=== PATIENT | male | born 1935 | race Hispanic/Latino ===

== ENCOUNTER 2020-09-06 23:49 | Inpatient (IN) | payer MEDICARE, OTHER ==
[~2020-09-06] VITALS: Ht 180.3 cm; Wt 80.3 kg
[2020-09-06] MEDS ORDERED: NALOXONE HCL 0.4 MG/1 ML ML ONE ×2 (23:51→23:53)
[2020-09-07] VITALS (43 sets, daily range): BP systolic 68–142; BP diastolic 32–77
[2020-09-07] MEDS ORDERED: FENTANYL 2500MCG+NS 250ML 250 ML IV ONE (00:04)
[2020-09-07] MEDS ORDERED: NOREPINEPHRIN 4MG/NS 250ML 250 ML IV ONE ×4 (00:06→07:07)
[2020-09-07 00:51] LABS: BASOPHILS % (AUTO) 0.2 % (0.0-5.0); HEMATOCRIT 28.3 % (42-54); LYMPHOCYTES % (AUTO) 6.1 % (21.0-51.0); MEAN CORPUSCULAR HEMOGLOBIN 30.6 pg (27.0-33.0); MEAN CORPUSCULAR HGB CONC 31.4 g/dL (32.0-36.0); MEAN CORPUSCULAR VOLUME 97.3 fL (79-99); MONOCYTES % (AUTO) 7.2 % (3.0-13.0); NEUTROPHILS % (AUTO) 82.9 % (40.0-77.0); NUCLEATED RED BLOOD CELLS 0.1 % (0.0-0.19); PLATELET COUNT (AUTO) 293 K/uL (130-400); RED BLOOD CELL COUNT(AUTO) 2.91 MIL/uL (4.50-6.20); RED CELL DISTRIBUTION WIDTH 14.3 % (11.0-15.5); WHITE BLOOD COUNT (AUTO) 21.1 K/uL (4.8-10.8)
[2020-09-07 01:01] LABS: ALBUMIN 2.1 g/dL (3.5-5.0); BILIRUBIN,TOTAL 0.7 mg/dL (0.2-1.0); CREATININE 2.2 mg/dL (0.5-1.5); CRP QUANTITATIVE 23.1 mg/L (0.00-9.0); POTASSIUM 5.4 mmol/L (3.5-5.1); TOTAL PROTEIN, SERUM 5.2 g/dL (6.0-8.3); TROPONIN I 0.27 ng/mL (0.00-0.06)
[2020-09-07 01:08] LABS: B-TYPE NATRIURETIC PEPTIDE 916 pg/mL (0-100)
[2020-09-07 01:22] LABS: BILIRUBIN,URINE Negative (NEGATIVE); COLOR,URINE Yellow (YELLOW); GLUCOSE, URINE (UA) Negative (NEGATIVE); KETONES,URINE Negative (NEGATIVE); LEUKOCYTE ESTERASE ,URINE Trace (NEGATIVE); NITRATE,URINE Negative (NEGATIVE); OCCULT BLOOD,URINE Negative (NEGATIVE); PROTEIN,URINE Negative (NEGATIVE)
[2020-09-07 01:23] LABS: APPEARANCE,URINE CLEAR (CLEAR)
[2020-09-07 01:27] LABS: INR 1.42 (0.85-1.15)
[2020-09-07 01:28] LABS: PARTIAL THROMBOPLASTIN TIME 30.2 SEC (26.3-35.5)
[2020-09-07 01:29] LABS: AMPHET/METH SCREEN,URINE NEGATIVE (NEGATIVE); BARBITURATE SCREEN, URINE NEGATIVE (NEGATIVE); BENZODIAZEPINES SCREEN,URINE NEGATIVE (NEGATIVE); CANNABINOID SCREEN,URINE NEGATIVE (NEGATIVE); COCAINE SCREEN,URINE NEGATIVE (NEGATIVE); OPIATE SCREEN,URINE NEGATIVE (NEGATIVE); PHENCYCLIDINE SCREEN,URINE NEGATIVE (NEGATIVE)
[2020-09-07] MEDS ORDERED: ZOSYN 3.375GM+NS 50ML 50 ML IV ONE (01:38)
[2020-09-07 01:43] LABS: BACTERIA,URINE Rare /HPF (None Seen); RBC,URINE 0-1 /HPF (0-1); WBC,URINE 0-1 /HPF (0-1)
[2020-09-07] MEDS ORDERED: CEFTRIAXONE 1G VIAL IV SCH (02:15)
[2020-09-07] MEDS ORDERED: ACETAMINOPHEN 325 MG TAB PO PRN (02:15)
[2020-09-07] MEDS ORDERED: MIDAZOLAM 100MG-0.9% NS 100ML 100ML BAG IV ONE (03:15)
[2020-09-07] MEDS ORDERED: FENTANYL CITRATE PF 0.05 MG/ML 1,000 MCG in 0.9%NACL 100ML 100 ML IVPB SCH (03:15)
[2020-09-07 04:42] LABS: ABG BASE EXCESS -9.8 mmol/L (-2.0-3.0); ABG HCO3 14.5 mmol/L (21.0-28.0); ABG OXYGEN SATURATION 99.3 % (95.0-99.0); ABG PCO2 28 mmHg (35-48)
[2020-09-07] MEDS ORDERED: NITROGLYCERIN 1GM OINT 1 INCH/1GM TD ONE (05:55)
[2020-09-07] MEDS ORDERED: ASPIRIN 81MG CHEW TAB ONE (05:55)
[2020-09-07] MEDS ORDERED: ASPIRIN 325MG EC TAB PO STA (06:38)
[2020-09-07] MEDS ORDERED: NITROGLYCERIN 1GM OINT 1 INCH/1GM TD STA (06:38)
[2020-09-07] MEDS ORDERED: MIDAZOLAM 100MG-0.9% NS 100ML 100 ML IV SCH (06:45)
[2020-09-07] MEDS ORDERED: FENTANYL 2500MCG+NS 250ML 250 ML IV SCH (06:45)
[2020-09-07] MEDS: ASPIRIN 325 MG TABLET PO SCH (07:17)
[2020-09-07] MEDS ORDERED: NOREPINEPHRINE BITARTRATE 8 MG in DEXTROSE 5%-WATER 250 ML IV PRN (07:30)
[2020-09-07 08:05] LABS: BASOPHILS % (AUTO) 0.2 % (0.0-5.0); HEMATOCRIT 24.2 % (42-54); LYMPHOCYTES % (AUTO) 3.4 % (21.0-51.0); MEAN CORPUSCULAR HEMOGLOBIN 30.5 pg (27.0-33.0); MEAN CORPUSCULAR HGB CONC 33.9 g/dL (32.0-36.0); MONOCYTES % (AUTO) 8.2 % (3.0-13.0); NEUTROPHILS % (AUTO) 86.6 % (40.0-77.0); NUCLEATED RED BLOOD CELLS 0.1 % (0.0-0.19); PLATELET COUNT (AUTO) 295 K/uL (130-400); RED BLOOD CELL COUNT(AUTO) 2.69 MIL/uL (4.50-6.20); RED CELL DISTRIBUTION WIDTH 14.6 % (11.0-15.5); WHITE BLOOD COUNT (AUTO) 28.1 K/uL (4.8-10.8)
[2020-09-07 08:23] LABS: ALBUMIN 1.9 g/dL (3.5-5.0); CREATININE 2.2 mg/dL (0.5-1.5); MAGNESIUM 2.2 mg/dL (1.80-2.40); TOTAL PROTEIN, SERUM 4.7 g/dL (6.0-8.3)
[2020-09-07 08:51] LABS: ABG BASE EXCESS -13.3 mmol/L (-2.0-3.0); ABG HCO3 12.4 mmol/L (21.0-28.0); ABG OXYGEN SATURATION 99.9 % (95.0-99.0); ABG PCO2 29 mmHg (35-48)
[2020-09-07] MEDS ORDERED: SODIUM BICARB 50MEQ 50ML VIAL IV STA (08:52)
[2020-09-07] MEDS ORDERED: RENAL DOSE IV PRN (09:00)
[2020-09-07] MEDS ORDERED: DEXTROSE 50%-WATER 50 ML DISP.SYRIN IV PRN (09:00)
[2020-09-07] MEDS ORDERED: GLUCAGON 1MG KIT 1 MG ML IM PRN (09:00)
[2020-09-07] MEDS ORDERED: VANCOMYCIN PROTOCOL PER PHARMACY IV SCH (09:00)
[2020-09-07] MEDS ORDERED: VANCOMYCIN 1G/250ML KIT 250 ML IV SCH (09:00)
[2020-09-07 09:09] LABS: % IRON SATURATION 33.7 % (30-44)
[2020-09-07 09:13] LABS: INR 1.43 (0.85-1.15); PROTHROMBIN TIME 15.1 SEC (9.6-11.6)
[2020-09-07 09:15] LABS: PARTIAL THROMBOPLASTIN TIME 29.6 SEC (26.3-35.5)
[2020-09-07] MEDS: NOREPINEPHRIN 8MG/250ML NS PMX 250 ML IV SCH ×2 (09:30→13:30)
[2020-09-07] MEDS ORDERED: VANCOMYCIN 1G 1.5 GM in 0.9% NACL 250ML 250 ML IV ONE (09:30)
[2020-09-07] MEDS ORDERED: ENOXAPARIN SODIUM 80 MG/0.8 ML SQ SCH (10:00)
[2020-09-07] MEDS: FAMOTIDINE 20MG VIAL IV SCH (10:33)
[2020-09-07] MEDS: ZOSYN 3.375GM+NS 50ML 50 ML IV SCH ×2 (10:34→17:05)
[2020-09-07] MEDS: HEPARIN 25,000 UNITS/250ML D5W 250 ML IV SCH (10:35)
[2020-09-07] MEDS ORDERED: HEPARIN 5,000 UNIT VIAL IV ONE (11:30)
[2020-09-07] MEDS ORDERED: INSULIN HUMULIN R 100 UNIT/ML 3ML SQ SCH (12:00)
[2020-09-07] MEDS ORDERED: COMPOUND IV REFRIGERATED 1 EACH IVSOLN MISC PRN (12:45)
[2020-09-07] MEDS: INSULIN HUMULIN R 100 UNIT/ML 3ML SQ SCH ×3 (13:00→20:22)
[2020-09-07] MEDS ORDERED: SUCCINYLCHOLINE CHLORIDE 20 MG/ML 10 ML VIAL IVP ONE (13:24)
[2020-09-07] MEDS ORDERED: ETOMIDATE 20MG VIAL IVP ONE (13:24)
[2020-09-07 13:36] LABS: ABG BASE EXCESS -5.1 mmol/L (-2.0-3.0); ABG HCO3 17.9 mmol/L (21.0-28.0); ABG OXYGEN SATURATION 97.7 % (95.0-99.0); ABG PCO2 29 mmHg (35-48)
[2020-09-07 13:59] LABS: HEMATOCRIT 25.1 % (42-54)
[2020-09-07 20:06] LABS: HEMATOCRIT 21.8 % (42-54)
[2020-09-07 20:32] LABS: AMYLASE 98 U/L (25-115); LIPASE 552 U/L (114-286)
[2020-09-08] VITALS (50 sets, daily range): BP systolic 69–192; BP diastolic 37–83
[2020-09-08] MEDS ORDERED: LACTATED RINGERS 1000ML 1,000 ML IV ONE (01:22)
[2020-09-08] MEDS: ZOSYN 3.375GM+NS 50ML 50 ML IV SCH ×3 (01:50→16:36)
[2020-09-08 02:19] LABS: BASOPHILS % (AUTO) 0.3 % (0.0-5.0); EOSINOPHILS % (AUTO) 0.3 % (0.0-8.0); HEMATOCRIT 24.3 % (42-54); LYMPHOCYTES % (AUTO) 6.7 % (21.0-51.0); MEAN CORPUSCULAR HEMOGLOBIN 29.7 pg (27.0-33.0); MEAN CORPUSCULAR HGB CONC 32.5 g/dL (32.0-36.0); MEAN CORPUSCULAR VOLUME 91.4 fL (79-99); MONOCYTES % (AUTO) 8.2 % (3.0-13.0); NEUTROPHILS % (AUTO) 83.7 % (40.0-77.0); NUCLEATED RED BLOOD CELLS 0.3 % (0.0-0.19); PLATELET COUNT (AUTO) 282 K/uL (130-400); RED BLOOD CELL COUNT(AUTO) 2.66 MIL/uL (4.50-6.20); RED CELL DISTRIBUTION WIDTH 14.8 % (11.0-15.5); WHITE BLOOD COUNT (AUTO) 21.3 K/uL (4.8-10.8)
[2020-09-08 02:34] LABS: ALBUMIN 1.6 g/dL (3.5-5.0); BILIRUBIN,DIRECT 0.2 mg/dL (0.0-0.3); BILIRUBIN,TOTAL 0.4 mg/dL (0.2-1.0); CREATININE 1.8 mg/dL (0.5-1.5); CRP QUANTITATIVE 28.8 mg/L (0.00-9.0); POTASSIUM 3.6 mmol/L (3.5-5.1); TOTAL PROTEIN, SERUM 4.1 g/dL (6.0-8.3)
[2020-09-08] MEDS: INSULIN HUMULIN R 100 UNIT/ML 3ML SQ SCH ×4 (07:30→22:00)
[2020-09-08 07:59] LABS: HEMATOCRIT 26.6 % (42-54)
[2020-09-08] MEDS: FAMOTIDINE 20MG VIAL IV SCH (08:21)
[2020-09-08] MEDS: ASPIRIN 325 MG TABLET PO SCH (08:21)
[2020-09-08] MEDS: NOREPINEPHRIN 8MG/250ML NS PMX 250 ML IV SCH ×3 (08:25→22:55)
[2020-09-08] MEDS ORDERED: ATOR40TA71 PO (08:34)
[2020-09-08] MEDS ORDERED: TAMS-1 PO (08:34)
[2020-09-08] MEDS ORDERED: GLIP10TA9 PO (08:34)
[2020-09-08] MEDS ORDERED: METO25 PO (08:34)
[2020-09-08] MEDS ORDERED: SITA100T12 PO (08:34)
[2020-09-08] MEDS ORDERED: DUTA0.5C37 PO (08:34)
[2020-09-08] MEDS ORDERED: MACR100 PO (08:34)
[2020-09-08] MEDS ORDERED: VANCOMYCIN 750MG + NS 250 ML IV SCH ×2 (09:00)
[2020-09-08] MEDS: FUROSEMIDE 40MG VIAL IV SCH (13:17)
[2020-09-08] MEDS: MIDODRINE HCL 5 MG TABLET NG SCH ×2 (13:17→21:01)
[2020-09-08] MEDS: ALBUMIN (HUMAN) 25% 100 ML IV SCH ×2 (13:18→21:01)
[2020-09-08] MEDS ORDERED: DICY20TA3 PO (14:18)
[2020-09-08] MEDS ORDERED: MEMA10TA55 PO (14:18)
[2020-09-08] MEDS ORDERED: DONE10TA43 PO (14:18)
[2020-09-08] MEDS: HEPARIN 25,000 UNITS/250ML D5W 250 ML IV SCH (14:41)
[2020-09-08] MEDS: ZYVOX 600 MG TAB PO SCH ×2 (16:15→21:02)
[2020-09-08 17:54] LABS: HEMATOCRIT 25.2 % (42-54)
[2020-09-08] MEDS ORDERED: POTASSIUM CHLORIDE 10% ELIXIR 20 MEQ/15 ML UDCUP PO PRN (18:00)
[2020-09-08] MEDS ORDERED: MAGNESIUM 2GM PREMIX 50ML 50 ML IV PRN (18:00)
[2020-09-08] MEDS ORDERED: POTASSIUM CHLORIDE 20MEQ/100ML 100 ML IV PRN (18:00)
[2020-09-08 20:13] LABS: HEMATOCRIT 32.6 % (42-54)
[2020-09-09] VITALS (49 sets, daily range): BP systolic 47–117; BP diastolic 21–99
[2020-09-09] MEDS: FUROSEMIDE 40MG VIAL IV SCH (00:48)
[2020-09-09] MEDS: ZOSYN 3.375GM+NS 50ML 50 ML IV SCH ×2 (00:48→09:00)
[2020-09-09] MEDS: HEPARIN 25,000 UNITS/250ML D5W 250 ML IV SCH (01:06)
[2020-09-09 02:39] LABS: ALBUMIN 2.2 g/dL (3.5-5.0); BILIRUBIN,TOTAL 1.2 mg/dL (0.2-1.0); CREATININE 2.5 mg/dL (0.5-1.5); CRP QUANTITATIVE 73.1 mg/L (0.00-9.0); PHOSPHORUS 7.6 mg/dL (2.5-4.9); POTASSIUM 5.1 mmol/L (3.5-5.1); TOTAL PROTEIN, SERUM 4.4 g/dL (6.0-8.3)
[2020-09-09 03:13] LABS: BASOPHILS % (AUTO) 0.2 % (0.0-5.0); EOSINOPHILS % (AUTO) 0.8 % (0.0-8.0); HEMATOCRIT 24.2 % (42-54); LYMPHOCYTES % (AUTO) 1.2 % (21.0-51.0); MEAN CORPUSCULAR HEMOGLOBIN 29.7 pg (27.0-33.0); MEAN CORPUSCULAR HGB CONC 28.5 g/dL (32.0-36.0); MEAN CORPUSCULAR VOLUME 104.3 fL (79-99); MONOCYTES % (AUTO) 7.3 % (3.0-13.0); NUCLEATED RED BLOOD CELLS 1.1 % (0.0-0.19); PLATELET COUNT (AUTO) 182 K/uL (130-400); RED BLOOD CELL COUNT(AUTO) 2.32 MIL/uL (4.50-6.20); RED CELL DISTRIBUTION WIDTH 15.8 % (11.0-15.5)
[2020-09-09] MEDS ORDERED: VASOPRESSIN 20 UNITS/ML 1ML VIAL ONE (04:03)
[2020-09-09] MEDS ORDERED: 0.9%NACL 100ML 100 ML IV ONE (04:04)
[2020-09-09] MEDS ORDERED: ALBUMIN (HUMAN) 5% 250 ML IV ONE (04:04)
[2020-09-09] MEDS ORDERED: ALBUMIN (HUMAN) 5% 250 ML IV SCH (04:15)
[2020-09-09] MEDS ORDERED: VASOPRESSIN 20 UNITS in 0.9%NACL 100ML 100 ML IV SCH (04:15)
[2020-09-09 04:24] LABS: ABG BASE EXCESS -27.3 mmol/L (-2.0-3.0); ABG HCO3 4.8 mmol/L (21.0-28.0); ABG OXYGEN SATURATION 94.2 % (95.0-99.0); ABG PCO2 25 mmHg (35-48)
[2020-09-09] MEDS ORDERED: SODIUM BICARB 50MEQ 50ML VIAL 200 ML ONE (04:25)
[2020-09-09] MEDS ORDERED: SODIUM BICARB 50MEQ 50ML VIAL IV STA (04:28)
[2020-09-09] MEDS ORDERED: SODIUM BICARB 8.4% 50ML SYRINGE IVP STA ×2 (04:28)
[2020-09-09] MEDS ORDERED: SODIUM BICARB 8.4% 50ML SYRING 150 MEQ in 0.9%NACL 1000ML 1,000 ML IVP SCH (04:30)
[2020-09-09] MEDS ORDERED: SODIUM BICARB 50MEQ 50ML VIAL 150 ML ONE ×2 (04:36→10:29)
[2020-09-09] MEDS ORDERED: 0.9%NACL 1000ML 1,000 ML IV ONE (04:37)
[2020-09-09] MEDS ORDERED: SODIUM BICARB 8.4% 50ML SYRING 150 MEQ in DEXTROSE 5%-WATER 1,000 ML IVP SCH (04:45)
[2020-09-09] MEDS ORDERED: PHENYLEPHRINE HCL 10 MG/ML 1ML VIAL IV ONE (05:09)
[2020-09-09] MEDS ORDERED: 0.9% NACL 250ML 250 ML IV ONE (05:10)
[2020-09-09] MEDS ORDERED: PHENYLEPHRINE HCL 50 MG in 0.9% NACL 250ML 250 ML IV PRN (05:15)
[2020-09-09] MEDS: INSULIN HUMULIN R 100 UNIT/ML 3ML SQ SCH ×2 (07:30→11:30)
[2020-09-09 08:38] LABS: HEMATOCRIT 31.5 % (42-54)
[2020-09-09] MEDS: ASPIRIN 325 MG TABLET PO SCH (09:00)
[2020-09-09] MEDS: ZYVOX 600 MG TAB PO SCH (09:00)
[2020-09-09] MEDS: MIDODRINE HCL 5 MG TABLET NG SCH (09:00)
[2020-09-09 09:26] LABS: INR 3.07 (0.85-1.15); PROTHROMBIN TIME 30.2 SEC (9.6-11.6)
[2020-09-09 09:39] LABS: PARTIAL THROMBOPLASTIN TIME > 139.0 SEC (26.3-35.5)
[2020-09-09 09:58] LABS: ABG BASE EXCESS -27.8 mmol/L (-2.0-3.0); ABG HCO3 4.6 mmol/L (21.0-28.0); ABG OXYGEN SATURATION 95.7 % (95.0-99.0); ABG PCO2 25 mmHg (35-48)
[2020-09-09] MEDS ORDERED: ARTIFICIAL TEARS 3.5 GM OINTMENT OD SCH (10:00)
[2020-09-09] MEDS ORDERED: SODIUM BICARB 50MEQ 50ML VIAL IV SCH (10:30)
[2020-09-09] MEDS ORDERED: MORPHINE 2 MG SYG IVP PRN (13:15)
== END 2020-09-09 13:25 | disposition expired | DRG 871 ==
LOC: EDH 23:49 → EDHIP 09-07 02:04 → EDBD 09-07 02:04 → 2BH 09-07 03:20 → 2CH 09-08 19:31
PROVIDERS: ADMIT Internal Medicine Pulmonary Disease; ATTEND Internal Medicine Pulmonary Disease
PROC: 5A1945Z Respiratory Ventilation, 24-96 Consecutive Hours (ICD-10-PCS; principal; 2020-09-07)
PROC: 0BH17EZ Insertion of Endotracheal Airway into Trachea, Via Natural or Artificial Opening (ICD-10-PCS; 2020-09-07)
PROC: 30233N1 Transfusion of Nonautologous Red Blood Cells into Peripheral Vein, Percutaneous Approach (ICD-10-PCS; 2020-09-09)
PROC: 02HV33Z Insertion of Infusion Device into Superior Vena Cava, Percutaneous Approach (ICD-10-PCS; 2020-09-09)
DX: A41.9 Sepsis, unspecified organism (principal); E43 Unspecified severe protein-calorie malnutrition; J96.01 Acute respiratory failure with hypoxia; I21.4 Non-ST elevation (NSTEMI) myocardial infarction; R65.21 Severe sepsis with septic shock; J18.9 Pneumonia, unspecified organism; K72.00 Acute and subacute hepatic failure without coma; N17.9 Acute kidney failure, unspecified; E87.2 Acidosis; I13.0 Hypertensive heart and chronic kidney disease with heart failure and stage 1 through stage 4 chronic kidney disease, or unspecified chronic kidney disease; I42.9 Cardiomyopathy, unspecified; I44.2 Atrioventricular block, complete; N39.0 Urinary tract infection, site not specified; E11.22 Type 2 diabetes mellitus with diabetic chronic kidney disease; N18.9 Chronic kidney disease, unspecified; N40.0 Benign prostatic hyperplasia without lower urinary tract symptoms; Z95.0 Presence of cardiac pacemaker; D64.9 Anemia, unspecified; F03.90 Unspecified dementia, unspecified severity, without behavioral disturbance, psychotic disturbance, mood disturbance, and anxiety; I35.0 Nonrheumatic aortic (valve) stenosis; I50.9 Heart failure, unspecified; K76.1 Chronic passive congestion of liver; Z66 Do not resuscitate; Z79.84 Long term (current) use of oral hypoglycemic drugs; Z83.3 Family history of diabetes mellitus; E66.9 Obesity, unspecified; Z79.899 Other long term (current) drug therapy; Z68.24 Body mass index [BMI] 24.0-24.9, adult; Z20.822 Contact with and (suspected) exposure to COVID-19
CPT/HCPCS: 31500; 36415; 36600; 70450; 71045; 71250; 74176; 76705; 80048; 80053; 80076; 80305; 81001; 82140; 82150; 82270; 82550; 82728; 82803; 82948; 83540; 83550; 83605; 83615; 83690; 83735; 83874; 83880; 84100; 84145; 84484; 85014; 85018; 85025; 85378; 85610; 85730; 86140; 86850; 86900; 86901; 86923; 87040; 87071; 87077; 87186; 87205; 87426; 87804; 93005; 93306; 94002; 94003; 99291; 99292; C1751; C1894; G0378; J0330; J1644; J1940; J2310; J2370; J2543; J3010; J3370; J3480; J3490; J7030; J7050; J7070; J7120; P9016; P9045; P9046; U0003